=== PATIENT | female | born 1980 | race Caucasian/White ===

== ENCOUNTER 2018-06-21 12:17 | Emergency (ER) | payer MEDICAID, SELFPAY ==
[2018-06-21 12:18] VITALS: BP 166/112; PULSE 97; RESP 16; TEMP 36.7; O2SAT 98; BMI 39.9
--- NOTE | 2018-06-21 12:47 | ED.DCSUM_ITS ---
- ER Visit Summary Date of Service: 06/21/18 Chief Complaint: Back pain History of Present Illness: The patient is a 38 F who presents with a complaint of back pain. She notes that in 2006 she had a back surgery and since that time she has had chronic weakness and neurologic changes of the right leg. She also notes a pain in her right parascapular back. She has had this before as well and states that in the past she has not been able to move her arm above her head but she is at least able to do that now. She also states that she has been clean for the past year. She states she has not had any drugs or alcohol. She denies smoking. She states that recently family member that she has been stay ing with his asked her to leave multiple times and she has done a lot of packing and moving. She wonders if she has overdone it. She states that she has not lost any rectal tone and stooled herself. She states that she has had some leakage of urine before she can get to the bathroom and urinate normally. No fevers or rashes. She also states that she is not taking any bipolar medications currently. She states that she has a counselor but cannot see them because she cannot speak openly to them in front of her children and nobody is able to watch her children. Family members are actually watching her children as she comes to the emergency department today. She is from [place] and came to [place] for her care. She states her family doctors at [place] does not feel comfortable going back because she had an issue with radiology there and filed a complaint with [facility]. Physical Examination: Afebrile vital signs are stable Gen: Well-nourished well-developed Head: Normocephalic atraumatic Eyes: Perrl EOMI ENT: TMs clear no rhinorrhea moist mucous membranes Neck: Supple no lymphadenopathy no JVD nontender CVS: Regular rate rhythm no murmurs normal S1-S2 Respiratory: No distress clear to auscultation bilaterally chest nontender Abdomen: Soft nontender nondistended normal bowel sounds no masses Back: Diffusely tender to the lightest of touch in the lumbar region as well as the thoracic region. No hyperemia. Patient will not tolerate palpation of the musculature Extremity: Nontender no edema Skin: Normal color no rash Neuro: alert orientated ?3 CN II-XII intact patient reports decreased sensation right leg. Normal patellar and Achilles tendon reflexes. Psych: Tearful. Pressured speech. Flight of ideas. Depressed. No suicidal ideation. Emergency Department Course and Treatment: Patient was advised this is most likely muscular in nature. She has a ready response as to why she cannot do pretty much anything I suggest for her such as physical therapy, anti- inflammatories, rest, primary care follow-up, etc. She reports that she is already lost some weight. Stretching is difficult because of her pain. This is most likely acute muscle strain superimposed upon her chronic back issues. There are red flags that cannot be ignored. I will write for Toradol and Flexeril. Patient is unhappy with this. She would like to file a complaint. She would like to speak with somebody from administration and from [facility]. She began to fill me in the emergency department. During this time the patient was very agile and getting up off the bed and moving into the hallway. Security called. screaming and yelling she ambulated down the hallway stating she cannot move the right side of her body as she films herself with her phone with her right hand. Impression: 1. Acute on chronic back pain 2. Manic behavior This note was generated with [employer] dictation software. It may contain incorrect words, spelling, and punctuation that were not noted in review of the chart prior to signing ED Disposition - Plan for ED Patient: Disposition: Home or Assisted Living Chief Complaint: Back Instructions: ED Sprain Strain Lumbar Prescriptions: Ketorolac [Toradol] 10 mg PO Q8H PRN #15 tab PRN Reason: Pain Cyclobenzaprine [Flexeril] 10 mg PO TID PRN #15 tab PRN Reason: Muscle Spasm Additional Instructions: You need to see her primary care physician and your counselor as soon as possible
--- NOTE | 2018-06-21 12:56 | ED.RN ---
Addendum entered by Richard Shearer 06/21/18 13:21: *competent not incomitant. Original Note: 1240 Dr. Shafer and this RN at bedside. Pt crying through entire story, starting from [address] Shafer did physical assessment, pt winced in pain as DR pressed on lower back. Dr. Shafer sat at bedside explaining to patient his recommendations to see her PCP and get an MRI, and to also start seeing her counselor and get back on her mental health medications. Dr. Shafer states he will write her some prescriptions and get her paperwork. This RN stays at bedside updating chart and medications. Pt was not upset or verbalized any grievance at this time. Registration enters room as this RN exits. Registration notified this RN that patient would like to file a grievance for not being taken serious. This RN let Hi Almeida charge nurse know, states she will come back to talk to patient. Dr. Shafer wrote discharge instructions and prescriptions and let patient know, patient then starts screaming that he hurt her, that we aren't treating her, that we don't know what the inside of her back looks like Pt stands up and walks to hallway on own, screaming that she cant walk or use her right side. This RN and 4 additional RNs come the scene. PD and security called at this time. Pt gets cell phone out and starts video taping staff and self on facebook live, stating we are hurting her, and disrespecting he and that the doctor is incomitant. Pt asked repeatedly to put down the phone and stop recording. Pt still screaming. Pt asked repeatedly to lower voice and go back into exam room to talk with a charge nurse. Pt then rips the discharge paperwork out of this RNs hands and walks herself out of ED still recording. Pt received discharge paperwork and prescriptions but was not educated on either.
--- NOTE | 2018-06-21 13:03 | ED.RN ---
THIS NURSE ATTEMPTED TO SPEAK WITH THE PT ABOUT HER REQUEST TO FILE A COMPLAINT. PT STANDING IN THE HALLWAY YELLING AND SCREAMING. PT RECORDING ON HER PHONE. PT INFORMED SEVERAL TIMES THAT SHE IS NOT PERMITTED TO RECORD WITHIN THE HOSPITAL. PT CONTINUES TO YELL AND REQUESTED HER D/C INSTRUCTIONS. AFTER RECEIVING HER D/C INSTRUCTIONS PT CONTINUED TO RECORD AND WALKED OUT OF THE DEPARTMENT AND DOWN THE ER RAMP
--- OUTSIDE RECORDS SUMMARY | 2018-08-16 16:11 | XMS RPT_ITS ---
:1980 Author Organization [facility] Care Team Providers Name Role Phone Tom Oliveros Attending Unavailable Domo, Tom Primary Care Unavailable Domo, Tom Admitting Unavailable Domo, Tom Attending Unavailable Domo, Tom Primary Care Unavailable Domo, Tom Attending Unavailable Domo, Tom Primary Care Unavailable Domo, Tom Admitting Unavailable Domo, Tom Attending Unavailable Domo, Tom Primary Care Unavailable Domo, Tom Admitting Unavailable Domo, Tom Attending Unavailable Domo, Tom Primary Care Unavailable [place], Lindsey D Attending Unavailable Domo, Tom Primary Care Unavailable [place], Lindsey D Admitting Unavailable Marco A, Lindsey D Admitting Unavailable [place], Lindsey D Attending Unavailable Domo, Tom Primary Care Unavailable Primay Care Physicia, No Primary Care Unavailable Nirav Shafer Attending Unavailable PROBLEMS PROBLEMS No Problem Records FoundPROCEDURES PROCEDURES No Procedure Records FoundRESULTS RESULTS MRI SPINE LUMBAR W/O Observed: 07/03/2018 Status: F Source: ANGLICAN CONTRAST 5:25 PM [facility] REPOSITORY Exam Date/Time: 07/03/2018 18:34 EST Reason for Exam: LUMBAR RADICULOPATHY CHRONIC LOW BACK PAIN LOSS OF BLADDER CONTROL;Radiculopathy Report STUDY: MRI Spine Lumbar w/o Contrast; 07/03/2018 6:34 pm INDICATION: Radiculopathy. COMPARISON: None. ACCESSION NUMBER(S): [id number] ORDERING CLINICIAN: Lindsey Strickland TECHNIQUE: The lumbar spine was studied in the sagital, axial and coronal planes utiliing T1 and T2 weighted images. FINDINGS: The marrow signal and vertebral body height are normal. The conus and sacrum are normal. Images at each interspace reveal the following: L1/L2 There is normal alignment and vertebral body height. The disc space is normal. There is no evidence of canal or foraminal narrowing. There is no evidence of bulging or herniated disc. L2/L3 There is normal alignment and vertebral body height. The disc space is normal. There is no evidence of canal or foraminal narrowing. There is no evidence of bulging or herniated disc. L3/L4 Circumferential bulging intervertebral disc with right paracentral herniated nucleus polyposis extending to the right lateral recess and measuring approximately 1 cm in size. Finding best appreciated on axial T2 weighted image . Flattening of the thecal sac which measures approximately 7 mm in AP dimension in the midline. Bilateral foraminal narrowing worse on the right than the left. L4/L5 Asymmetrical bulging of the intervertebral disc to the left. Focal left-sided foraminal narrowing. No measurable canal stenosis. L5/S1 Bilateral facet hypertrophy without canal or foraminal narrowing IMPRESSION: *Lumbar spondylosis with foraminal narrowing and mild canal stenosis as described above. *Herniated nucleus polyposis to the right at L3/L4 *Asymmetrical bulging to the left at L4/L5 Exam Date/Time: 07/03/2018 18:34 EST Report The examination was interpreted [facility]3] FINAL REPORT Dictated: 07/04/2018 10:28 am Milelr Hallman MD Signed (Electronic Signature): 07/04/2018 10:28 am Signed by: Miller Hallman MD Technologist: [place] [facility] Observed: 06/21/2018 Status: F Source: [place] SUMMARY 5:45 PM [facility] REPOSITORY [facility] Medical Records Department [address] [place] [address] Emergency Department Summary 06/21/18 1245 MR#: [id number] Acct: [id number] Name: FAN ACEVES Rep #: [id number] : 1980 38 From: Nirav Shafer DO PCP: Care Physician, No Primary Status: DEP ER - ER Visit Summary Date of Service: 06/21/18 Chief Complaint: Back pain History of Present Illness: The patient is a 38 F who presents with a complaint of back pain. She notes that in 2006 she had a back surgery and since that time she has had chronic weakness and neurologic changes of the right leg. She also notes a pain in her right parascapular back. She has had this before as well and states that in the past she has not been able to move her arm above her head but she is at least able to do that now. She also states that she has been clean for the past year. She states she has not had any drugs or alcohol. She denies smoking. She states that recently family member that she has been staying with his asked her to leave multiple times and she has done a lot of packing and moving. She wonders if she has overdone it. She states that she has not lost any rectal tone and stooled herself. She states that she has had some leakage of urine before she can get to the bathroom and urinate normally. No fevers or rashes. She also states that she is not taking any bipolar medications currently. She states that she has a counselor but cannot see them because she cannot speak openly to them in front of her children and nobody is able to watch her children. Family members are actually watching her children as she comes to the emergency department today. She is from [place] and came to [place] for her care. She states her family doctors at [place] does not feel comfortable going back because she had an issue with radiology there and filed a complaint with [facility]. Physical Examination: Afebrile vital signs are stable Gen: Well-nourished well-developed Head: Normocephalic atraumatic Eyes: Perrl EOMI ENT: TMs clear no rhinorrhea moist mucous membranes Neck: Supple no lymphadenopathy no JVD nontender CVS: Regular rate rhythm no murmurs normal S1-S2 Respiratory: No distress clear to auscultation bilaterally chest nontender Abdomen: Soft nontender nondistended normal bowel sounds no masses Back: Diffusely tender to the lightest of touch in the lumbar region as well as the thoracic region. No hyperemia. Patient will not tolerate palpation of the musculature Extremity: Nontender no edema Skin: Normal color no rash Neuro: alert orientated 3 CN II-XII intact patient reports decreased sensation right leg. Normal patellar and Achilles tendon reflexes. Psych: Tearful. Pressured speech. Flight of ideas. Depressed. No suicidal ideation. Emergency Department Course and Treatment: Patient was advised this is most likely muscular in nature. She has a ready response as to why she cannot do pretty much anything I suggest for her such as physical therapy, anti-inflammatories, rest, primary care follow-up, etc. She reports that she is already lost some weight. Stretching is difficult because of her pain. This is most likely acute muscle strain superimposed upon her chronic back issues. There are red flags that cannot be ignored. I will write for Toradol and Flexeril. Patient is unhappy with this. She would like to file a complaint. She would like to speak with somebody from administration and from [facility]. She began to fill me in the emergency department. During this time the patient was very agile and getting up off the bed and moving into the hallway. Security called. screaming and yelling she ambulated down the hallway stating she cannot move the right side of her body as she films herself with her phone with her right hand. Impression: 1. Acute on chronic back pain 2. Manic behavior This note was generated with [employer] dictation software. It may contain incorrect words, spelling, and punctuation that were not noted in review of the chart prior to signing ED Disposition - Plan for ED Patient: Disposition: Home or Assisted Living Chief Complaint: Back Instructions: ED Sprain Strain Lumbar Prescriptions: Ketorolac [Toradol] 10 mg PO Q8H PRN #15 tab PRN Reason: Pain Cyclobenzaprine [Flexeril] 10 mg PO TID PRN #15 tab PRN Reason: Muscle Spasm Additional Instructions: You need to see her primary care physician and your counselor as soon as possible What to do if you have Problems For any increased pain, shortness of breath, bleeding, nausea or vomiting, chest pain, or any unexpected problems, contact your Primary Care Provider. Call [facility] ([phone]) or report to the closest Emergency Room. Call 911 if necessary. 06/21/18 9607 <Electronically signed by Nirav Shafer DO> Date Nirav Shafer DO Cosigner Signature (If Indicated): Date CC: No Primary Care Physician XR SPINE CERVICAL 6 Observed: 10/04/2017 Status: F Source: ANGLICAN OR MORE VIEWS 10:36 AM [facility] REPOSITORY Exam Date/Time: 10/04/2017 10:47 EDT Reason for Exam: Trauma Report CERVICAL SPINE X-RAYS, 10/04/2017 CLINICAL DATA: Status post fall 3 days ago. COMPARISON: No comparisons. TECHNIQUE: 6 views. Patient refused swimmer's view. FINDINGS: There is reversal of curvature of the cervical spine above C5 level suggesting muscle spasm. No spondylolisthesis or fracture. IMPRESSION: Reversal of the cervical curvature suggests muscle spasm but no suggestion of spondylolisthesis or fracture. FINAL REPORT Dictated: 10/04/2017 12:03 pm Gurjit Redding MD Signed (Electronic Signature): 10/04/2017 12:03 pm Signed by: Gurjit Redding MD Technologist: [facility] ALLERGIES ALLERGIES DATE TYPE / CODE NAME / CODE REACTION SEVERITY SOURCE 07/13/2016 Drug No Known Unknown [facility] Allergy/416 Allergies/M031946 Community 093080(SNOM 388(RXNORM) [facility] ED CT) Repository Drug/901582 No Known [place] 003(SNOMED Allergies [facility] CT) System Repository Drug/883292 No Known [place] 003(SNOMED Medication [facility] CT) Allergies System Repository ENCOUNTERS ENCOUNTERS ADMIT/DISCHARGE ACCOUNT NUMBER ADMITTING ENCOUNTER LOCATION SOURCE CLASS 07/03/2018/07/03/20 [id number] Ofe Strickland [address] ding:[facility] Health System Repository 07/03/[id number] Repository 06/22/2018/06/22/20 [id number] Ofe Strickland [address] ding:[facility] Repository racRoom: Room 1 06/21/2018/06/21/20 [id number] Emergency Noel Noel [facility] ding:ED Repository 11/06/2017/04/16 [id number] Ambulatory [address] ding:[facility] Repository rac 10/10/2017/10/11/19 [id number] Ambulatory [address] ding:[facility] Repository rac 10/04/2017/10/05/[id number] [facility], [address] ding:[facility] [place] Repository 10/04/2017/10/05/19 [id number] Domo, [address] ding:[facility] Repository racRoom: Room 1 07/13/2017/07/13/20 [id number] Domo, [address] ding:[facility] Repository racRoom: Room 3 PAYERS PAYERS ENCOUNTER GUARANTOR PAYER SUBSCRIBER SOURCE [facility]03/[facility] MCAIDPolicy Number: [id number] Repository [place], [place] Date:2018-07-02 [place] [address]Feg: [id number]: Name:CD:[id number] () [address] [place] [address] ()Tel: [phone]: (wp) [phone] 07/03/2018 [facility] olicy Number: [id number] [id number] [place], [place] Date:[place], [place] [id number]: Name:[facility] [id number]: [address] [place] [address] (HP) [phone]: [phone]) (RJ) [phone] 06/22/2018 FAN R Primary FAN R Druze SHERIFFDOB: Insurance:1500 SHERIFFDOB: [facility] [id number] System [facility] HL[address] [facility] Repository [place], [place] Number: [place] [address]Mps: Date:2018-06-22Tel: [id number] (HP) Name:CD:[id number] O (HP)Tel: (000) [address], [place] [address] (WP) [phone]: 06/21/2018 FAN R Primary FAN R Noel [id number] S Insurance:CAREURC SHERIFFDOB: [address] Number: [id number] [address]Xzt: [id number] Repository Date:2018-06-21P O (HP) [address]ATTN: [place] [address]AI: 06/21/2018 Secondary NOT GIVENUNK [place] Insurance:SELF PAY [facility] Number: Effective Repository Date:2018-06-21 11/06/2017 FAN R Primary FAN R Druze SHERIFFDOB: Insurance:1500 SHERIFFDOB: [facility] W [facility] [id number] [facility] HLTH [address]Policy [address] [place] Repository [place], [place] Number: Effective [place], [place] [id number]: Date:2017-10-04 [id number]: [id number] (HP) Name:CD:[id number] O (HP)Tel: (000) [address], [place] [address] (WP) [phone]: 10/10/2017 FAN R Primary FAN R Druze SHERIFFDOB: Insurance:1500 [facility] [id number] System [facility] [place], [place] Number: Effective [place], [place] [id number]: Date:2017-07-13 - [id number]: [id number] (HP) Name:CD:[id number] O (HP)Tel: (000) [address] [place] [address] (WP) [phone]: 10/04/2017 FAN R Primary FAN R Druze SHERIFFDOB: Insurance[facility] MCAIDPolicy Number: [id number] System [place] Date:2017-10-04 - [place], [place] [id number]: [id number] [id number]: Name:CD:[id number] (HP) [address] [place] [address] (HP)Tel: (000) [phone]: (WP) [phone] 10/04/2017 FAN R Primary FAN R Druze SHERIFFDOB: Insurance:1500 [facility] W [facility] [id number] [facility] [place], [place] Number: Effective [place], [place] [id number]: Date:2017-10-03 - [id number]: [id number] (HP) Name:CD:[id number] O (HP)Tel: (000) [address], [place] [address] (WP) [phone]: 07/13/2017 FAN SOARESB: Insurance:1500 SHERIFFDOB: [facility] [id number] System [facility] Repository [place], [place] Number: Effective [place], [place] [id number]: Date:2017-07-13 [id number]: [id number] () Name:CD:[id number] O (HP)Tel: 000) [address], [place] [address] (WP) [phone]:
== END 2018-06-21 13:24 | disposition home or self-care (01) ==
PROVIDERS: Emergency Provider Emergency Medicine
DX: M54.9 Dorsalgia, unspecified (principal); G89.29 Other chronic pain; R53.1 Weakness; F30.9 Manic episode, unspecified; E66.9 Obesity, unspecified
CPT/HCPCS: 99282